=== PATIENT | male | born 1980 | race Caucasian/White ===

== ENCOUNTER 2018-04-17 17:35 | Day surgery (SDC) | payer OTHER ==
[~2018-04-17 17:35] MED LIST: HYDROcod/ACETAM 5/325 MG TABLET PO PRN; HYDROmorphone 0.5 MG/0.5 ML SYRINGE IVP PRN; ONDANSETRON 4 MG/2 ML VIAL IVP PRN
--- NOTE | 2018-04-17 18:07 | ED Physician Documentation ---
PD HPI ABD PAIN - Stated complaint Stated Complaint: LOW RT ABD PX/NAUSEA - Chief complaint Chief Complaint: Abd Pain - History obtained from History obtained from: Patient - History of Present Illness Timing - onset: Other (4-5 days of right lower quadrant pain. Actually was worse a few days ago but is now somewhat improved but still present. Its associated with nausea and decreased appetite. Decreased bowel movements to but he is not eating much. He went to see his doctor today and had outpatient labs drawn. The has a copy with them. Briefly his white count was 15.1, hemoglobin 14, hematocrit 41%. Plt count was 403. His comprehensive metabolic panel was normal, notable for normal electrolytes and renal function with BUN of 15 and a creatinine of 1.0.) Review of Systems Ten Systems: 10 systems reviewed and negative Constitutional: reports: Fatigue, Reviewed and negative Respiratory: denies: Dyspnea, Cough GI: reports: Abdominal Pain, Nausea, Constipation. denies: Vomiting, Diarrhea, Hematemesis PD PAST MEDICAL HISTORY - Past Medical History Past Medical History: No - Past Surgical History Past Surgical History: Yes Ortho: ACL reconstruction - Present Medications Home Medications: Ambulatory Orders Medication Instructions Recorded Confirmed No Known Home Medications 04/17/18 04/17/18 - Allergies Allergies/Adverse Reactions: Allergies Allergy/AdvReac Type Severity Reaction Status Date / Time No Known Drug Allergies Allergy Verified 04/17/18 17:51 - Social History Does the pt smoke?: Yes Smoking Status: Current every day smoker Does the pt drink ETOH?: Yes Does the pt have substance abuse?: No - Family History Family history: reports: Non contributory - Immunizations Immunizations are current?: Yes Immunizations: TDAP current <10years PD ED PE NORMAL - Vitals Vital signs reviewed: Yes - General General: Alert and oriented X 3, No acute distress - HEENT HEENT: PERRL, EOMI - Neck Neck: Supple, no meningeal sign, No bony TTP - Cardiac Cardiac: RRR, No murmur - Respiratory Respiratory: No respiratory distress, Clear bilaterally - Abdomen Abdomen: Other (Modest tenderness in the right lower quadrant without surgical signs except for a mild Rovsing sign.) - Back Back: No CVA TTP, No spinal TTP - Derm Derm: Normal color, Warm and dry - Extremities Extremities: No edema, No calf tenderness / cord - Neuro Neuro: Alert and oriented X 3, Normal speech Results - Vitals Vitals: Vital Signs - 24 hr 04/17/18 04/17/18 04/17/18 17:48 19:36 21:10 Temperature 36.7 C Heart Rate 66 70 57 L Respiratory 20 16 14 Rate Blood Pressure 127/73 113/78 106/72 O2 Saturation 99 100 100 04/17/18 21:46 Temperature Heart Rate 66 Respiratory 16 Rate Blood Pressure 114/78 O2 Saturation 99 Oxygen O2 Source Room air - Labs Labs: Laboratory Tests 04/17/18 19:00 Urine Color YELLOW Urine Clarity CLEAR Urine pH 6.0 Ur Specific Morning Sun 1.010 Urine Protein NEGATIVE Urine Glucose (UA) NEGATIVE Urine Ketones NEGATIVE Urine Occult Blood NEGATIVE Urine Nitrite NEGATIVE Urine Bilirubin NEGATIVE Urine Urobilinogen 0.2 (NORMAL) Ur Leukocyte Esterase NEGATIVE Ur Microscopic Review NOT INDICATED Urine Culture Comments NOT INDICATED - Rads (name of study) Ct A/P Radiology: EMP read contemporaneously (Possible tip appendicitis) PD MEDICAL DECISION MAKING - ED course ED course: 37-year-old gentleman with Several days of right lower quadrant pain. And an outpatient white count of 15. CT was done showing possible appendicitis but not completely diagnostic. I spoke with the on-call surgeon, Dr. Lassiter who will see the patient likely taken for an interval appendectomy given the uncertainty, otherwise clinically this does seem consistent with appendicitis. Departure - Departure Disposition: ED Transfer to [facility] Clinical Impression: Appendicitis Qualifiers: Appendicitis type: acute appendicitis Acute appendicitis type: with localized peritonitis Appendicitis gangrene presence: without gangrene Appendicitis perforation presence: without perforation Appendicitis abscess presence: without abscess Qualified Code(s): K35.30 - Acute appendicitis with localized peritonitis, without perforation or gangrene Condition: Good
[2018-04-17] MEDS ORDERED: IOPAMIDOL-300 100 ML VIAL ONE (19:09)
[2018-04-17 19:14] LABS: BILIRUBIN,URINE NEGATIVE (NEGATIVE); GLUCOSE, URINE (UA) NEGATIVE (NEGATIVE); KETONES,URINE (UA) NEGATIVE (NEGATIVE); LEUKOCYTE ESTERASE, URINE NEGATIVE (NEGATIVE); NITRITE,URINE NEGATIVE (NEGATIVE); OCCULT BLOOD,URINE NEGATIVE (NEGATIVE); PROTEIN,URINE NEGATIVE (NEGATIVE); UROBILINOGEN,URINE 0.2 (NORMAL) E.U./dL (NORMAL)
[2018-04-17 19:16] LABS: CLARITY,URINE CLEAR (CLEAR)
[2018-04-17] MEDS ORDERED: IOPAMIDOL-300 100 ML VIAL IVP ONE (19:34)
--- NOTE | 2018-04-17 20:18 | CT Report ---
Reason: IV only, RLQ pain Procedure Date: 04/17/2018 Accession Number: [id number] / [id number] Procedure: CT - Abdomen/Pelvis W/ CPT Code: FULL RESULT: EXAM: CT ABDOMEN AND PELVIS EXAM DATE: 04/17/2018 07:15 PM. CLINICAL HISTORY: RLQ pain. COMPARISONS: None. TECHNIQUE: Routine helical CT imaging was performed through the abdomen and pelvis. IV contrast: ISOVUE 300 100mL. Enteric contrast: No. Reconstructions: Coronal and sagittal. In accordance with CT protocol optimization, one or more of the following dose reduction techniques were utilized for this exam: automated exposure control, adjustment of mA and/or KV based on patient size, or use of iterative reconstructive technique. FINDINGS: Lung Bases: There is mild dependent lower lobe atelectasis. Liver: Normal. Gallbladder/Bile Ducts: Unremarkable. Spleen: Normal. Pancreas: Normal. Adrenal Glands: Normal. Kidneys: Normal. No mass or hydronephrosis. Peritoneal Cavity/Bowel: There are multiple mildly prominent fluid-filled small bowel loops without transition point. No free fluid, free air or adenopathy. The proximal midportion of the appendix are normal in size, however the tip is mildly dilated, measuring about 8 mm in diameter with mild prominence of the mucosa (image 50 series 3). No significant adjacent inflammatory change. Small foci of gas seen in the lumen. Pelvic Organs: Bladder and prostate gland are unremarkable. Vasculature: No aneurysms or other significant abnormality. Bones: No significant abnormality. Other: None. IMPRESSION: The distal appendix and tip are mildly dilated, measuring up to 8 mm in diameter with mild mucosal prominence, however there is no significant periappendiceal inflammation. This could represent early acute appendicitis in the appropriate setting. RADIA
[2018-04-17] MEDS ORDERED: PIPERACILLIN/TAZOBACTAM 3.375 GM in SODIUM CHLORIDE 0.9% MINIBAG 100 ML IV STA (20:23)
--- NOTE | 2018-04-17 21:51 | ANESTHESIA ---
Pre-Anesthesia VS, & Labs - Diagnosis appendicitis - Procedure appendectomy Vital Signs: Temp Pulse Resp BP Pulse Ox 36.7 C 66 16 114/78 99 04/17/18 17:48 04/17/18 21:46 04/17/18 21:46 04/17/18 21:46 04/17/18 21:46 Height 5 ft 8 in Weight (kg) 74.843 kg Body Mass Index 25.0 - NPO >8 hours Home Medications and Allergies Home Medications: Ambulatory Orders No Known Home Medications 04/17/18 No Known Home Medications 04/17/18 Allergies/Adverse Reactions: Allergies Allergy/AdvReac Type Severity Reaction Status Date / Time No Known Drug Allergies Allergy Verified 04/17/18 17:51 Anes History & Medical History - Anesthetic History Anesthesia Complications: reports: No previous complications Family history of Anesthesia Complications: Denies Family history of Malignant Hyperthermia: Denies - Medical History Smoking Status: Current every day smoker - Surgical History Orthopedic: ACL reconstruction Exam General: Oriented x3 Dental: Other (caps) Mouth Openin Fingerbreadth Neck Mobility: Normal Mallampati classification: I Thyromental Distance: greater than 6 cm Respiratory: Lungs clear, Normal breath sounds, No respiratory distress, No acc essory muscle use Cardiovascular: Regular rate, Normal S1, Normal S2, No murmurs Mental/Cognitive Status: Alert/Oriented X3, Normal for patient Plan Anesthesia Type: General Consent for Procedure(s) Verified and Reviewed: Yes Code Status: Attempt Resuscitation ASA classification: 2-Mild systemic disease Is this case an emergency?: Yes
[2018-04-17] MEDS ORDERED: BUPIVACAINE 0.5% PF 30 ML VIAL ONE (22:08)
--- NOTE | 2018-04-17 22:30 | CONSULTATION NOTE ---
Referring Provider Name of Referring Provider:: Dr. Dior Consult Date: 04/17/18 Chief Complaint - Chief Complaint Chief Complaint: Abdominal pain History of Present Illness - Admitted From Admitted From:: Not admitted - outpatient - History Obtained From Records Reviewed: Yes History obtained from: Patient Exam Limitations: None - History of Present Illness HPI Comment/Other: Dr. Arrington estimates he is very pleasant 37-year-old male on consultation for t he possibility of acute appendicitis. The patient was examined and evaluated in room 7 at [facility]'s emergency department. The symptoms started on Friday and worsened through Friday. The patient denies any vomiting but states that he was not eating much for fear of nausea. The pain localized to the right lower quadrant. He denies melena, hematochezia, hematemesis, and he has not had this pain previously. Motion worsens the pain. His and adorable 2 and 1/2-year-old son were present in the room during the entire conversation and exam. History - Past Medical History MRSA Hx?: No - Past Surgical History Ortho: reports: ACL reconstruction Meds/Allgy - Home Medications Home Medications: Ambulatory Orders Medication Instructions Recorded Confirmed No Known Home Medications 04/17/18 04/17/18 - Allergies Allergies/Adverse Reactions: Allergies Allergy/AdvReac Type Severity Reaction Status Date / Time No Known Drug Allergies Allergy Verified 04/17/18 17:51 Review of Systems - Constitutional Constitutional: denies: Fatigue, Fever, Chills - Eyes Eyes: denies: Pain - Ears, Nose & Throat Ears, Nose & Throat: denies: Ear pain - Cardiovascular Cariovascular: denies: Irregular heart rate, Palpitations, Chest pain - Respiratory Respiratory: denies: Cough, Sputum production, Wheezing - Gastrointestinal Gastrointestinal: reports: Abdominal pain, Poor appetite (Actually scared of eating for fear of worsening the pain.). denies: Constipation, Diarrhea, Change in bowel habits, Black stools, Bloody stools, Vomiting - Genitourinary Genitourinary: denies: Dysuria - Musculoskeletal Musculoskeletal: denies: Muscle pain - Integumentary Integumentary: denies: Rash - Neurological Neurological: denies: General weakness, Focal weakness Exam - Vital Signs Reviewed Vital Signs: Yes Vital Signs: Vital Signs x48h Temp Pulse Resp BP Pulse Ox 04/17/18 21:46 66 16 114/78 99 04/17/18 21:10 57 L 14 106/72 100 04/17/18 19:36 70 16 113/78 100 04/17/18 17:48 36.7 C 66 20 127/73 99 - Physical Exam General Appearance: positive: No acute distress Eyes Bilateral: positive: No lid inflammation, Conjunctivae nml, No scleral icterus Neck: positive: Trachea midline. negative: Carotid bruit Respiratory: positive: Chest non-tender, No respiratory distress, Breath sounds nml Cardiovascular: positive: Regular rate & rhythm Abdomen: positive: No organomegaly, Nml bowel sounds, No distention, Tenderness (At McBurney's point.), Guarding Skin: positive: Color nml Extremities: positive: Non-tender, Nml appearance Neurologic/Psychiatric: positive: Oriented x3 Conclusion/Plan - Diagnosis Diagnosis: Acute appendicitis (slightly atypical presentation) - Plan Plan: Laparoscopic appendectomy, possible open appendectomy. The indications, procedure, alternatives including no surgery, possible risks including infection (deep or superficial), bleeding requiring transfusion (with all of its risks), and were fully explained to the patient and all questions answered. I also explained the pathophysiology. I explained that following the surgery I did not want him lifting anything over 15 pounds for 6 weeks to allow for optimal healing and to decrease the likelihood that a hernia would occur. All questions were fully answered. Verbal and written consent was obtained. The patient, in preparation for surgery will be nothing by mouth, and receive 3.375 g of Zosyn with induction. I asked him to contact me with any surgical questions and his concerns and he stated that he would. I asked him to let me know if there is any way we can make his stay at [facility] more comfortable and he stated that he would let me know. The plan is to do this operation as an outpatient procedure and to discharge him home following the procedure. 45 minutes of [id number] time spent with the patient, the majority of which was spent in discussion, coordination of care, and completion of the requisite paperwork - Lab Results Lab results reviewed: Yes - Diagnostic Imaging Results Diagnostic Imaging Results: positive: Final report reviewed, Read independently Diagnostic Imaging Results Comments: Consistent with appendicitis of the tip of the appendix
[2018-04-17] MEDS ORDERED: LACTATED RINGERS 1,000 ML IV ONE ×2 (22:53→23:55)
[2018-04-17] MEDS ORDERED: BUPIVACAINE 0.5% PF 30 ML VIAL SUBQ ONE (23:12)
[2018-04-17] MEDS ORDERED: LIDOCAINE-MPF 2% 5 ML VIAL IM ONE (23:20)
[2018-04-17] MEDS ORDERED: ONDANSETRON 4 MG/2 ML VIAL IVP ONE (23:20)
[2018-04-17] MEDS ORDERED: fentaNYL 100 MCG/2 ML VIAL IVP ONE (23:20)
[2018-04-17] MEDS ORDERED: PROPOFOL 200 MG/20 ML VIAL IVP ONE (23:20)
[2018-04-17] MEDS ORDERED: ROCURONIUM 50 MG/5 ML VIAL IVP ONE (23:20)
[2018-04-17] MEDS ORDERED: GLYCOPYRROLATE 1 MG/5 ML VIAL IVP ONE (23:20)
[2018-04-17] MEDS ORDERED: KETOROLAC 30 MG/ML VIAL IVP ONE (23:20)
[2018-04-17] MEDS ORDERED: NEOSTIGMINE 1 MG/1 ML 10 ML MDV IVP ONE (23:20)
[2018-04-17] MEDS ORDERED: HYDROcod/ACET 5/325 Prepack 4 PO STA (23:37)
[2018-04-17] MEDS ORDERED: HYDROmorphone 0.5 MG/0.5 ML SYRINGE IVP PRN (23:37)
[2018-04-17] MEDS ORDERED: ONDANSETRON 4 MG/2 ML VIAL IVP PRN (23:37)
[2018-04-17] MEDS ORDERED: HYDROcod/ACETAM 5/325 MG TABLET PO PRN (23:37)
--- NOTE | 2018-04-17 23:37 | OPERATIVE REPORT ---
Operative Report - General Procedure Date: 04/17/18 Planned Procedure: Laparoscopic appendectomy, possible open appendectomy Pre-Op Diagnosis: Acute appendicitis Procedure Performed: Laparoscopic appendectomy, umbilical herniorrhaphy Post Op Diagnosis: Appendicitis of the tip of the appendix, and small umbilical hernia - Procedure Note Primary Surgeon: Turner Lassiter MD Anesthesia Provider: Turner Morales MD Anesthesia Technique: General ET tube, Local (30 mL of half percent Marcaine) IV Fluids (mL): 500 Estimated Blood Loss (mL): 5 Complications: None. - Other Other Information/Narrative: OPERATIVE DESCRIPTION/REPORT: After verbal and written informed consent was obtained detailing the risks of infection, bleeding requiring transfusion with its risks, and , and after I met with the patient confirming the surgery and the site of the surgery, the patient was brought to the operative suite and placed supine on the operating table. Great care was taken to avoid pressure points to prevent pressure n ecrosis or nerve injury. Monitoring devices were applied along with TEDs and pneumatic compressive stockings (to prevent DVT). The patient received preoperative antibiotics for surgical prophylaxis. Dr. Turner Morales sedated and anesthetized the patient for the entire procedure. The patient was prepped and draped in the usual sterile manner. With the patient draped my initials were clearly visible. A "time in" then confirmed that the patient was identified with 3 identifiers (name, date and medical record number), the history and physical was in the chart, the signed consent confirming the procedure was in the chart, the patient was in the correct position, the aforementioned prophylactic measures were in place or given, we had the correct personnel and equipment to complete the procedure and that anesthesia, surgery and nursing were given an opportunity to express any concerns. With the agreement of everyone in the room, we proceeded with the operation. A 2 cm incision umbilical incision was made and dissection down to the fascia was completed in a blunt and sharp manner. The fascia was then cleared of subcutaneous tissue using a tonsil clamp and a small umbilical hernia was noted. This was widened gaining entry into the abdomen without incident. A 12 mm blunt tipped balloon tipped Saravanan port was placed into the abdomen and the balloon inflated to keep it in place. The pneumoperitoneum was then established using carbon dioxide insufflation to a steady state pressure of 15 mmHg. Two additional 5 mm ports were placed in the midline above and below the umbilicus. The patient was then rotated slightly to their left and slightly head down (Trendelenberg). The appendix was quite long and retrocecal and it was clear that the appendicitis involved the distal tip of the appendix. The distal tip of the appendix was quite firm and difficult to grasp. It was also adherent retrocecally. The mesentery at the base was taken using sequential application of the Ligasure until the base of the appendix was visualized without any adherent tissue. The base of the appendix was then stapled and transected using a laparoscopic vascular stapler. Visualization of the staple line revealed absolutely no bleeding or leak of bowel contents. The appendiceal mesentery was then taken in a retrograde manner using serial application of the LigaSure thus freeing the entire appendix. Photographs were taken. The appendix was then place into an endopouch for the remainder of the case. The patient was then rotated to lie flat. The fascia and skin were then injected with the 30 cc of % marcaine for pain control. The insufflation was released and the ports removed. With the removal of the umbilical port the Endopouch containing the appendix was also removed. The fascial defect was then approximated using 0-Vicryl suture in a figure-8 manner thus repairing the umbilical hernia. The skin incisions were approximated with 4-0 Monocryl in a subcuticular fashion. The surgical prep was removed, the skin was prepped with benzoin and steristrips were applied. A dressing was applied. At this point a time out was performed that confirmed that all the counts were correct, the procedure that was performed, the blood loss, the urine output, the IV fluids administered, and the patients condition. Having tolerated the procedure well, the patient was subsequently extubated and taken to recovery room in good and stable condition. [email or web address] disclaimer: This document was created in part using voice recognition technology. Because of the inherent limitations of the system ([employer]'s [employer] Dictate user manual states that the licensee understands that speech recognition is a statistical process and that recognition errors are inherent in the process), occasional same sounding word substitutions and grammatical errors do occur and persist despite proofreading. Please read this document for context.
[2018-04-17] MEDS ORDERED: ACETAMINOPHEN 1,000 MG/100 ML 100 ML IV ONE (23:47)
[2018-04-17] MEDS ORDERED: HYDROcod/ACET 5/325 Prepack 4 PO ONE (23:47)
[2018-04-18 01:37] VITALS: BP 105/63
== END 2018-04-18 01:40 | disposition home or self-care (01) ==
LOC: ED 17:35 → SDS 21:10 → OBS 04-18 00:23 → SDS 04-18 01:40
PROVIDERS: ATTEND Surgery
PROC: 0DTJ4ZZ Resection of Appendix, Percutaneous Endoscopic Approach (ICD-10-PCS; principal; 2018-04-17 22:00)
DX: K35.80 Unspecified acute appendicitis (principal); K42.9 Umbilical hernia without obstruction or gangrene; F17.210 Nicotine dependence, cigarettes, uncomplicated
CPT/HCPCS: 44970; 74177; 81003; 96365; 99283; 99284; J0131; J7120; Q9967; 81001; 87086

== ENCOUNTER 2020-07-29 14:53 | Emergency (ER) | payer OTHER ==
--- NOTE | 2020-07-29 15:05 | ED Physician Documentation ---
PD HPI LOWER EXT INJURY - Stated complaint Stated Complaint: LEFT FOOT PX - Chief complaint Chief Complaint: Ext Problem - History obtained from History obtained from: Patient - History of Present Illness PD HPI LOW EXT INJURY LOCATION: Left, Foot Type of injury: Twist (stepped down from his truck and stepped onto uneven curb area, with twisting of the foot and ankle. Pain mid lateral foot.) Where injury occurred: Other (occurred at the dump, bringing stuff from home.) Timing - onset: How many hours ago (1), Today Timing - duration: Hours Timing - details: Abrupt onset, Still present Worsened by: Moving, Palpating, Other (walking) Associated symptoms: Swelling. No: Weakness, Numbness Similar symptoms before: Has not had sx before Review of Systems Constitutional: denies: Fever Nose: denies: Rhinorrhea / runny nose, Congestion Throat: denies: Sore throat Respiratory: denies: Cough Skin: denies: Abrasion (s), Laceration (s) Neurologic: denies: Focal weakness, Numbness PD PAST MEDICAL HISTORY - Past Medical History Musculoskeletal: None - Past Surgical History Past Surgical History: Yes Ortho: ACL reconstruction - Present Medications Home Medications: Ambulatory Orders Medication Instructions Recorded Confirmed No Known Home Medications 04/17/18 07/29/20 - Allergies Allergies/Adverse Reactions: Allergies Allergy/AdvReac Type Severity Reaction Status Date / Time No Known Drug Allergies Allergy Verified 07/29/20 15:01 - Social History Does the pt smoke?: Yes Smoking Status: Current every day smoker Does the pt drink ETOH?: Yes Does the pt have substance abuse?: No - Immunizations Immunizations are current?: Yes Immunizations: TDAP current <10years PD ED PE NORMAL - Vitals Vital signs reviewed: Yes - General General: Alert and oriented X 3, Well developed/nourished, Other (appears uncomfortable with foot movement. Was brought in from triage by wheelchair. ) - Derm Derm: Normal color, Warm and dry - Extremities Extremities: Other (left foot with swelling and tenderness dorsolateral foot over area of 5th MT base and across top/middle. No noted deformity. Normal color and cap refill distally. ) - Neuro Neuro: Alert and oriented X 3, No motor deficit, No sensory deficit, Normal speech Results - Vitals Vitals: Vital Signs - 24 hr 07/29/20 07/29/20 14:59 15:58 Temperature 36.3 C L 36.9 C Heart Rate 77 73 Respiratory 18 16 Rate Blood Pressure 126/74 117/77 O2 Saturation 100 98 Oxygen O2 Source Room air - Rads (name of study) left foot Radiology: Prelim report reviewed (nondisplaced fracture base of 5th MT. Other areas normal. ), See rad report PD MEDICAL DECISION MAKING - ED course Complexity details: reviewed results (fracture base of 5th MT, nondisplaced. ), considered differential, d/w patient Departure - Departure Disposition: 01 Home, Self Care Clinical Impression: Foot sprain Qualifiers: Encounter type: initial encounter Laterality: left Qualified Code(s): S93.602A - Unspecified sprain of left foot, initial encounter Fracture of base of fifth metatarsal bone Qualifiers: Encounter type: initial encounter Fracture type: closed Laterality: left Qualified Code(s): S92.352A - Displaced fracture of fifth metatarsal bone, left foot, initial encounter for closed fracture Condition: Stable Record reviewed to determine appropriate education?: Yes Instructions: ED Fx Foot Follow-Up: Kevin Gurrola MD [Primary Care Provider] - Luis Angel Flor MD [Provider Admit Priv/Credential] - Comments: Use the boot orthosis when up and around for the next 3 to 4 weeks. It might get changed to just a walking firm shoe as its healing but I would defer to orthopedics. Elevate ice and rest your foot often today and tomorrow to reduce swelling. Anti-inflammatory such as ibuprofen 3 times a day. To that add Tylenol if needed for pain. The boot splint and crutches will be the main improvement on pain as well as elevating and ice it to reduce swelling. I would suggest following up at about 1-1/2 weeks to ensure its healing in proper position. Call Friday for an appointment. It is okay to reduce use of the crutches and have partial and progressive weightbearing as tolerated. Be sure to maintain use of the boot splint. Discharge Date/Time: 07/29/20 16:01
[2020-07-29] MEDS ORDERED: ACETAMINOPHEN 325 MG TABLET PO STA (15:14)
[2020-07-29] MEDS ORDERED: IBUPROFEN 600 MG TABLET PO STA (15:14)
--- NOTE | 2020-07-29 15:35 | XRAY Report ---
PROCEDURE: Foot 3 View LT INDICATIONS: twisted foot on curb; with 5th MT pain TECHNIQUE: History views of the foot were acquired. COMPARISON: None FINDINGS: Bones: Nondisplaced horizontal fracture of the base of the fifth metatarsal. No other fractures or di slocations. No suspicious bony lesions. Soft tissues: No tibiotalar joint effusion. Achilles tendon appears normal. IMPRESSION: Nondisplaced horizontal fracture of the base of the fifth metatarsal. Reviewed by: Gideon Blevins MD on 07/29/2020 2:34 PM AKST Approved by: Gideon Blevins MD on 07/29/2020 2:34 PM AKST Station ID: [id number]
[2020-07-29 15:59] VITALS: BP 117/77
== END 2020-07-29 16:01 | disposition home or self-care (01) ==
LOC: ED 14:53
DX: S92.355A Nondisplaced fracture of fifth metatarsal bone, left foot, initial encounter for closed fracture (principal); X50.1XXA Overexertion from prolonged static or awkward postures, initial encounter; Y93.H9 Activity, other involving exterior property and land maintenance, building and construction; Y92.89 Other specified places as the place of occurrence of the external cause; F17.200 Nicotine dependence, unspecified, uncomplicated
CPT/HCPCS: 73630; 99283; A9270

== ENCOUNTER 2020-08-03 08:00 | Outpatient (CLI) | payer OTHER ==
--- NOTE | 2020-08-03 17:15 | XRAY Report ---
PROCEDURE: Foot 3 View LT INDICATIONS: NONDISPLACED FX OF L 5TH METATARSAL TECHNIQUE: 3 views of the foot were acquired. COMPARISON: 07/29/2020 FINDINGS: Bones: Comminuted fracture involving the proximal fifth metatarsal stable in appearance compared to . No new fracture identified. Soft tissues: No tibiotalar joint effusion. Achilles tendon appears normal. IMPRESSION: Stable alignment of proximal fifth metatarsal fracture. Reviewed by: Neva Lomax MD, PhD on 08/03/2020 5:13 PM PDT Approved by: Neva Lomax MD, PhD on 08/03/2020 5:13 PM PDT Station ID: [id number]
== END 2020-08-03 23:59 | disposition home or self-care (01) ==
LOC: DI.N 08:00
PROVIDERS: ATTEND Physician Assistant
DX: S92.355A Nondisplaced fracture of fifth metatarsal bone, left foot, initial encounter for closed fracture (principal)

== ENCOUNTER 2020-09-07 08:00 | Outpatient (CLI) | payer OTHER ==
--- NOTE | 2020-09-07 09:37 | XRAY Report ---
PROCEDURE: Foot 3 View LT INDICATIONS: LEFT FOOT FRACTURE TECHNIQUE: 3 views of the foot were acquired. COMPARISON: 08/03/2020 FINDINGS: Unchanged alignment of fifth metatarsal base fracture. No pes planus Soft tissues: No tibiotalar joint effusion. Achilles tendon appears normal. IMPRESSION: Unchanged alignment of fifth metatarsal base fracture. Reviewed by: Ramez Brown MD on 09/07/2020 9:35 AM PDT Approved by: Ramez Brown MD on 09/07/2020 9:35 AM PDT Station ID: [id number]
== END 2020-09-07 23:59 | disposition home or self-care (01) ==
LOC: DI.N 08:00
PROVIDERS: ATTEND Physician Assistant
DX: S92.355A Nondisplaced fracture of fifth metatarsal bone, left foot, initial encounter for closed fracture (principal)